=== PATIENT | male | born 1985 | race Caucasian/White ===

== ENCOUNTER 2019-04-29 09:16 | Emergency (ER) | payer BC ==
[~2019-04-29] VITALS: Ht 177.8 cm; Wt 65.8 kg
[~2019-04-29 09:16] MED LIST: DONNATAL1 TAB PO; MOTRIN600 MG PO; PEPCID20 MG PO
[2019-04-29] MEDS ORDERED: EPIPEN 2-P0.3 MG/0.3 IJ (09:23)
[2019-04-29] MEDS ORDERED: MEDROL DOSEPAK4 MG PO (10:57)
== END 2019-04-29 11:01 | disposition home or self-care (01) ==
LOC: ED 09:16
DX: T63.441A Toxic effect of venom of bees, accidental (unintentional), initial encounter (principal); Z88.0 Allergy status to penicillin; Z91.030 Bee allergy status; Y92.89 Other specified places as the place of occurrence of the external cause